=== PATIENT | male | born 1970 | race Caucasian/White ===

== ENCOUNTER 2024-07-25 00:28 | Observation (INO) | payer MEDICAID, SELFPAY ==
[2024-07-25 00:46] VITALS: BP 128/76; PULSE 89; RESP 18; TEMP 36.9; O2SAT 94; BMI 27.3
--- NOTE | 2024-07-25 00:54 | XR_ITS ---
PROCEDURE INFORMATION: Exam: XR Chest Exam date and time: 07/25/2024 12:57 AM Age: 53 years old Clinical indication: Shortness of breath TECHNIQUE: Imaging protocol: Radiologic exam of the chest. Views: 1 view. COMPARISON: CR XR CHEST PORTABLE 07/25/2024 12:57 AM FINDINGS: Tubes, catheters and devices: A right IJ vein [id number] is noted. Lungs: There are emphysematous changes present. No consolidation Pleural spaces: Blunting of the costophrenic angles may represent small effusions or pleural thickening. Heart/Mediastinum: Unremarkable. No cardiomegaly. Vasculature: Unremarkable. Bones/joints: Unremarkable. IMPRESSION: 1. Emphysematous changes. 2. Very small effusions versus pleural thickening.
[2024-07-25 00:58] LABS: Coronavirus 19, PCR Not Detected (NotDetected); Influenza B, PCR Not Detected (NotDetected)
[2024-07-25 01:00] LABS: Basophils # 0.1 K/mm3 (0-0.2); Basophils % 0.8 % (0.1-2.0); Eosinophils # 0.2 K/mm3 (0.0-0.4); Eosinophils % 3.1 % (0.1-12.0); Hematocrit 46.5 % (42.0-52.0); Hemoglobin 15.7 g/dL (14.1-18.0); Lymphocytes # 1.3 K/mm3 (0.7-4.5); Lymphocytes % 19.3 % (10-50); Mean Corpuscular HGB Conc 33.8 g/dL (31.8-35.4); Mean Corpuscular Hemoglobin 29.6 pg (27.0-31.2); Mean Corpuscular Volume 87.7 fl (80-94); Mean Platelet Volume 10.8 fl (7.4-10.4); Monocytes # 1.1 K/mm3 (0.1-1.0); Monocytes % 17.6 % (1.7-9.3); Neutrophils # 3.8 K/mm3 (1.8-7.8); Neutrophils % 58.9 % (37.0-80.0); Platelet Count 181 K/mm3 (142-424); Red Cell Distribution Width 14.7 % (11.5-17.5); White Blood Count 6.5 K/mm3 (4.8-10.8)
[2024-07-25 01:02] LABS: VBG Base Excess -4.3 mmol/L (-2.4-2.3); VBG HCO3 21.4 mmol/L (23-30); VBG Oxygen Saturation 98.6 % (50-70); VBG PCO2 40.3 mmol/L (35-51); VBG PH 7.34 mmol/L (7.31-7.41); VBG Total CO2 22.6 mmol/L (23-27)
[2024-07-25 01:03] LABS: Lactate Venous 3.8 mmol/L (0.4-2.0)
[2024-07-25 01:05] LABS: Alanine Aminotransferase 24 U/L (12-78); Albumin Level 4.5 g/dl (3.5-5.0); Albumin/Globulin Ratio 2.1 (1.1-1.8); Alkaline Phosphatase 87 U/L (38-126); Anion Gap 15.2 mEq/L (5-15); Aspartate Amino Transferase 34 U/L (17-59); Bilirubin,Total 0.6 mg/dl (0.2-1.3); Blood Urea Nitrogen 31 mg/dl (9-20); Calcium 8.4 mg/dl (8.4-10.2); Carbon Dioxide 25 mmol/L (22.0-30.0); Chloride 99 mmol/L (98-107); Creatinine Clearance Estimated 82 mL/min (50-200); Estimated Glomerular Filt Rate 63 ml/min (>60); GFR (African American) 77 ML/MIN (>60); Globulin 2.1 g/dL (1.3-3.2); Glucose 87 mg/dl (74-100); Potassium 4.2 mmoL/L (3.5-5.1); Sodium 135 mmol/L (136-145); Total Protein,Serum 6.6 g/dl (6.3-8.2)
--- NOTE | 2024-07-25 01:17 | CT_ITS ---
PROCEDURE INFORMATION: Exam: CT Abdomen And Pelvis With Contrast Exam date and time: 07/25/2024 1:50 AM Age: 53 years old Clinical indication: Abdominal pain; Additional info: Untreated lung cancer, worsening diffuse pain TECHNIQUE: Imaging protocol: Computed tomography of the abdomen and pelvis with contrast. 3D rendering (Not supervised by radiologist): MIP and/or 3D reconstructed images were created by the technologist. Radiation optimization: All CT scans at this facility use at least one of these dose optimization techniques: automated exposure control; mA and/or kV adjustment per patient size (includes targeted exams where dose is matched to clinical indication); or iterative reconstruction. Contrast material: ISOVUE; Contrast volume: 80 ml; Contrast route: IV; COMPARISON: CT ANGIO CHEST PE PROTOCOL 07/25/2024 1:50 AM FINDINGS: Lungs: The chest is reported separately. Liver: Normal. No mass. Gallbladder and biliary ducts: Normal. No calcified stones. No ductal dilation. Pancreas: Normal. No ductal dilation. Spleen: Normal. No splenomegaly. Adrenal glands: Normal. No mass. Kidneys and ureters: No hydronephrosis. No stone disease. 16 mm parapelvic cyst lower pole right kidney. Stomach and bowel: There are left colon diverticula without acute inflammation. No bowel obstruction. No mucosal thickening. Appendix: Absent. Intraperitoneal space: Unremarkable. No free air. No significant fluid collection. Vasculature: Mild to moderate calcific atherosclerotic disease without aneurysm or dissection. Lymph nodes: Unremarkable. No enlarged lymph nodes. Urinary bladder: Unremarkable as visualized. Reproductive: Unremarkable as visualized. Bones/joints: Mild degenerative changes of the spine. No acute fracture. Soft tissues: Unremarkable. IMPRESSION: 1. There is no acute process evident within the abdomen or pelvis. 2. Nonurgent findings as noted. COMMENTS: Consistent with the [employer]'s Incidental Findings Committee white paper (J Am Dennis Radiol 2018): Any incidental renal lesion less than 1 cm or classified as too small to characterize, or any incidental cystic renal lesion characterized as simple-appearing, is likely benign. No follow-up imaging is recommended for these lesions per consensus recommendations based on imaging criteria.
--- NOTE | 2024-07-25 01:17 | CT_ITS ---
PROCEDURE INFORMATION: Exam: CTA Chest With Contrast Exam date and time: 07/25/2024 1:50 AM Age: 53 years old Clinical indication: Shortness of breath; Additional info: Untreated lung cancer, worsening diffuse pain TECHNIQUE: Imaging protocol: Computed tomographic angiography of the chest with contrast. Exam focused on the arteries. 3D rendering (Not supervised by radiologist): MIP and/or 3D reconstructed images were created by the technologist. Radiation optimization: All CT scans at this facility use at least one of these dose optimization techniques: automated exposure control; mA and/or kV adjustment per patient size (includes targeted exams where dose is matched to clinical indication); or iterative reconstruction. Contrast material: ISOVUE; Contrast volume: 80 ml; Contrast route: INTRAVENOUS (IV); COMPARISON: CR XR CHEST PORTABLE 07/25/2024 12:57 AM FINDINGS: Tubes, catheters and devices: A right IJ vein [id number] is noted with the catheter tip positioned in the central superior vena cava. Pulmonary arteries: Normal. No pulmonary emboli. Aorta: Unremarkable. No aortic aneurysm. No aortic dissection. Lungs: Prominent calcified granuloma within the right upper lobe. Significant emphysematous changes. There are several areas of scarring noted within the right lung. A discrete mass is not identified within either lung. Pleural spaces: Unremarkable. No pneumothorax. No pleural effusion. Heart: Unremarkable. No cardiomegaly. No pericardial effusion. Lymph nodes: There are calcified right hilar and mediastinal lymph nodes. There are few mildly prominent mediastinal and right hilar lymph nodes without pathologic enlargement. Bones/joints: The thoracic spine is reported separately. No fracture, lytic or blastic abnormality of the ribcage, sternum or shoulder girdles. Soft tissues: Unremarkable. IMPRESSION: 1. No acute findings. No pulmonary embolus or acute aortic abnormality. 2. Severe emphysematous changes. No discrete pulmonary mass. There are areas of apparent scarring within the right lung. Correlation with prior imaging which demonstrates the patient's lung cancer is recommended. 3. Other nonemergent findings as noted. COMMENTS: The presence of pulmonary emphysema on CT is an independent risk factor for lung cancer. In the absence of a history or active diagnosis of lung cancer, it is recommended that this patient with emphysema be evaluated for enrollment in a low dose CT lung cancer screening program.
--- NOTE | 2024-07-25 01:18 | CT_ITS ---
PROCEDURE INFORMATION: Exam: CTA Head With Contrast, Arteriography Exam date and time: 07/25/2024 1:45 AM Age: 53 years old Clinical indication: Pain; Headache; Additional info: 3 days R facial/rue/rle numbness, known lung CA TECHNIQUE: Imaging protocol: Computed tomographic angiography of the head with contrast. Exam focused on the arteries. 3D rendering (Not supervised by radiologist): MIP and/or 3D reconstructed images were created by the technologist. Radiation optimization: All CT scans at this facility use at least one of these dose optimization techniques: automated exposure control; mA and/or kV adjustment per patient size (includes targeted exams where dose is matched to clinical indication); or iterative reconstruction. Contrast material: ISOVUE; Contrast volume: 80 ml; Contrast route: INTRAVENOUS (IV); COMPARISON: CT HEAD/BRAIN WO CON 07/25/2024 1:37 AM FINDINGS: ANTERIOR CIRCULATION: Right internal carotid artery: Intracranial segment is patent with no significant stenosis. No aneurysm. Right middle cerebral artery: No occlusion or significant stenosis. No aneurysm. Right anterior cerebral artery: No occlusion or significant stenosis. No aneurysm. Left internal carotid artery: Intracranial segment is patent with no significant stenosis. No aneurysm. Left middle cerebral artery: No occlusion or significant stenosis. No aneurysm. Left anterior cerebral artery: No occlusion or significant stenosis. No aneurysm. POSTERIOR CIRCULATION: Right vertebral artery: No occlusion or significant stenosis. No aneurysm. Left vertebral artery: No occlusion or significant stenosis. No aneurysm. Basilar artery: No occlusion or significant stenosis. No aneurysm. Right posterior cerebral artery: No occlusion or significant stenosis. No aneurysm. Left posterior cerebral artery: No occlusion or significant stenosis. No aneurysm. Brain: No hemorrhage. Unremarkable white matter. No mass effect. Cerebral ventricles: No ventriculomegaly. Bones/joints: Unremarkable. No acute fracture. Soft tissues: Unremarkable. IMPRESSION: Negative CTA Head. No evidence of intracranial large vessel stenosis or occlusion. No evidence of aneurysm or AVM.
--- NOTE | 2024-07-25 01:18 | CT_ITS ---
PROCEDURE INFORMATION: Exam: CT Head Without Contrast Exam date and time: 07/25/2024 1:37 AM Age: 53 years old Clinical indication: Pain; Headache not specified; Additional info: 3 days R facial/rue/rle numbness, known lung CA TECHNIQUE: Imaging protocol: Computed tomography of the head without contrast. Total images: 542 Radiation optimization: All CT scans at this facility use at least one of these dose optimization techniques: automated exposure control; mA and/or kV adjustment per patient size (includes targeted exams where dose is matched to clinical indication); or iterative reconstruction. COMPARISON: No relevant prior studies available. FINDINGS: Brain: No acute intracranial hemorrhage, midline shift, or mass. No acute territorial infarct. Basilar cisterns are preserved. Age-appropriate white matter. Cerebral ventricles: Mild ventricular prominence likely reflecting central atrophy. Paranasal sinuses: Mild mucosal thickening of the ethmoid air cells, bilateral maxillary and sphenoid sinuses. Trace air-fluid level right sphenoid sinus implying acute sinusitis. Mastoid air cells: Visualized mastoid air cells are well aerated. Bones: Unremarkable. No acute fracture. Soft tissues: Unremarkable. Other findings: Limited by motion/attenuation artifact. IMPRESSION: 1. No acute intracranial process. 2. Limited by motion and attenuation artifact. 3. Paranasal sinus disease including shallow air-fluid level in the right maxillary sinus implying acute sinusitis. 4. If symptoms persist or worsen, recommend follow-up imaging given current limitations.
--- NOTE | 2024-07-25 01:18 | CT_ITS ---
PROCEDURE INFORMATION: Exam: CT Lumbar Spine Without Contrast Exam date and time: 07/25/2024 1:43 AM Age: 53 years old Clinical indication: Low back pain; Additional info: Untreated lung cancer, worsening diffuse pain TECHNIQUE: Imaging protocol: Computed tomography of the lumbar spine without contrast. Radiation optimization: All CT scans at this facility use at least one of these dose optimization techniques: automated exposure control; mA and/or kV adjustment per patient size (includes targeted exams where dose is matched to clinical indication); or iterative reconstruction. COMPARISON: CT THORACIC SPINE WO CON 07/25/2024 1:40 AM FINDINGS: Bones/joints: No acute fracture. No lytic or blastic process. Normal alignment. Diffuse mild degenerative disc disease most prominent at L3-L4. Diffuse [id number] facet arthropathy. No significant disc bulge or herniation. No severe spinal canal stenosis. No significant neural foraminal narrowing. Intraperitoneal space: The abdomen and pelvis reported separately. Soft tissues: Unremarkable. IMPRESSION: No acute abnormality of the lumbar spine.
--- NOTE | 2024-07-25 01:18 | CT_ITS ---
PROCEDURE INFORMATION: Exam: CT Thoracic Spine Without Contrast Exam date and time: 07/25/2024 1:40 AM Age: 53 years old Clinical indication: Pain in thoracic spine; Additional info: Untreated lung cancer, worsening diffuse pain TECHNIQUE: Imaging protocol: Computed tomography of the thoracic spine without contrast. Radiation optimization: All CT scans at this facility use at least one of these dose optimization techniques: automated exposure control; mA and/or kV adjustment per patient size (includes targeted exams where dose is matched to clinical indication); or iterative reconstruction. COMPARISON: CR XR CHEST PORTABLE 07/25/2024 12:57 AM FINDINGS: Bones/joints: Severe degenerative disc disease noted at C5-C6 and C6-C7. Mild degenerative changes of the thoracic spine most prominent involving the mid and lower aspect. No fracture, lytic or blastic abnormality. Spinal cord: The central canal and foramina are widely patent. Soft tissues: Unremarkable. Other findings: The chest is reported separately. IMPRESSION: No acute abnormality of the thoracic spine.
--- NOTE | 2024-07-25 01:19 | CT_ITS ---
PROCEDURE INFORMATION: Exam: CTA Neck With Contrast Exam date and time: 07/25/2024 1:45 AM Age: 53 years old Clinical indication: Pain; Headache; Additional info: 3 days R facial/rue/rle numbness, known lung CA TECHNIQUE: Imaging protocol: Computed tomographic angiography of the neck with contrast. Exam focused on the cervical segments of the vasculature. 3D rendering (Not supervised by radiologist): MIP and/or 3D reconstructed images were created by the technologist. Radiation optimization: All CT scans at this facility use at least one of these dose optimization techniques: automated exposure control; mA and/or kV adjustment per patient size (includes targeted exams where dose is matched to clinical indication); or iterative reconstruction. Contrast material: ISOVUE; Contrast volume: 80 ml; Contrast route: INTRAVENOUS (IV); COMPARISON: CT ANGIO HEAD 07/25/2024 1:45 AM FINDINGS: Right common carotid artery: Unremarkable. No significant stenosis. No dissection or occlusion. Right internal carotid artery: There is calcified mural plaque at the carotid bifurcation, but no significant stenosis. The remaining extracranial segment is patent with no significant stenosis. No dissection or occlusion. Right external carotid artery: No occlusion or stenosis of the origin. Left common carotid artery: Unremarkable. No significant stenosis. No dissection or occlusion. Left internal carotid artery: There is calcified mural plaque at the carotid bifurcation, but no significant stenosis. The remaining extracranial segment is patent with no significant stenosis. No dissection or occlusion. Left external carotid artery: No occlusion or stenosis of the origin. Right vertebral artery: No stenosis. No dissection or occlusion. Left vertebral artery: No stenosis. No dissection or occlusion. Soft tissues: Normal. No significant soft tissue swelling. Bones/joints: No acute fracture. IMPRESSION: 1. Calcific atherosclerotic changes at the bilateral carotid bifurcations, but no significant stenosis or occlusion. 2. No evidence of stenosis or occlusion of the remaining cervical great vessels. No evidence of dissection. REFERENCES: NASCET CRITERIA. The degree of stenosis in the cervical segment of the internal carotid artery is based on NASCET criteria. Normal is no stenosis. Mild is less than 50% stenosis. Moderate is 50-69% stenosis. Severe is 70% to 99% stenosis. Total occlusion is no detectable patent lumen.
[2024-07-25 01:20] LABS: Influenza A, PCR Detected (NotDetected)
--- NOTE | 2024-07-25 01:21 | ECG_ITS ---
APPROVED REPORT Exam: Resting ECG HR:81 bpm ECG Measurements Heart Rate 81 AXES TN 143 P 72 QRSd 94 QRS 83 QT 346 T 45 QTc 384 Conclusion SINUS RHYTHM NORMAL ECG UNCONFIRMED REPORT Electronically signed by : BHARATI SPIVEY, 07/25/2024 06:58:31
[2024-07-25] MEDS: IPRATROPIUM/ALBUTEROL 3 ML NEB 6 ML IH (01:25)
[2024-07-25 01:35] LABS: INR 1.06 (0.9-1.1); Magnesium 2.2 mg/dl (1.6-2.3); Phosphorous 3.4 mg/dl (2.5-4.5); Prothrombin Time 11.5 seconds (9.2-12.1)
--- NOTE | 2024-07-25 01:37 | HMH.EDGENADL ---
Discharge Plan Disposition Patient Disposition: Admitted Clinical Impressions Clinical Impression: Numbness on right side, Influenza B Discharge ED Provider: Danyel Santiago Adult HPI General Chief complaint: Shortness of Breath/Dyspnea Stated complaint: SOA, weakness, body aches Time Seen by Provider: 07/25/24 00:35 Mode of Arrival: Ambulatory Source of Information: Patient Limitations: No Limitations Description of Symptoms (Recalled from ER Triage Doc. by RN): patient complains of cough, weakness, shortness of breath, pain in back. States pain is 9/10 in his back. History of Present Illness HPI narrative: 53-year-old male with reported history of of treated B cell lymphoma and reported recurrence of cancer in his lungs presents for multiple complaints. He reports he is having headache, severe back pain, rib pain, pain with breathing, shortness of breath, intermittent fevers, etc. etc. He also reports that about 3 days ago he started having difficulty using his right hand with associated numbness in his right face, right upper extremity and right lower extremity. Denies significant weakness. He reports that he has been drooling of the right side of his mouth and he cannot figure out why. He reports that he was seen at another facility a few months ago and was told that he likely has new cancer in bilateral lungs. He is very upset about this diagnosis. He has not seen his new cancer doctor yet because his old cancer doctor retired. He has an appointment scheduled for next month. He reports that he is on oxygen at home at baseline. Related Data Allergies Allergy/AdvReac Type Severity Reaction Status Date / Time Penicillins Allergy Anaphylaxis Verified 07/25/24 03:46 [facility] Disclaimer: The information contained in this section may have been updated after the patient was seen, as this information can be updated by other users. Medical History (Updated 07/25/24 @ 04:48 by Ethel Nguyễn RN) Depression Pneumonia Stomach cancer Lung cancer COPD (chronic obstructive pulmonary disease) Asthma Weakness Family History (Updated 07/25/24 @ 04:48 by Ethel Nguyễn RN) Family/Other Cancer Social History (Updated 07/25/24 @ 04:48 by Ethel Nguyễn RN) Smoking Status: Former smoker alcohol intake: never current occupational status: other Travel in the last 8 weeks: None Have you lived/traveled outside US in past 30 days?: No Contact w/someone who lives/traveled outside US past 30 days?: No Exposure to someone with infectious disease in past 14 days?: No Do you have a fever (greater than 100.4 F or 38 C)?: No Have you tested positive for COVID-19: No Exposed to someone with COVID-19 in past 14 days?: No Do you have a sore throat?: No Do you have a cough?: No Do you have any weakness?: Yes Do you have any diarrhea?: No Are you experiencing any unusual bleeding?: No Do you have any muscle aches/pain?: Yes Do you have any abdominal pain?: No Are you experiencing loss of taste or smell?: No ROS Obtained: Yes All systems reviewed & no additional complaints except as documented Physical Exam General General appearance: alert and anxious Head Head exam: atraumatic and normocephalic Eye Eye exam: Present normal appearance, PERRL and EOMI ENT ENT exam: Present normal oropharynx and normal external ear exam Neck Neck exam: Present normal inspection and full ROM Chest Chest inspection: Present normal inspection and symmetric chest wall rise; Absent tenderness Respiratory Respiratory exam: Absent normal lung sounds bilaterally (Mild wheeze and rhonchi bilaterally, worse on the left) or respiratory distress Cardiovascular Cardiovascular exam: Present regular rate and normal rhythm Abdominal Exam Abdominal exam: Present soft; Absent distention, tenderness or guarding Extremities Exam Extremities exam: Present normal inspection; Absent edema or joint swelling Back Exam Back exam: Present normal inspection; Absent tenderness Neurological Exam Neurological exam: Present alert, oriented X3 and motor sensory deficit (Numbness in the right upper extremity, right lower extremity, right side of the face. No appreciable motor difference.) Psychiatric Psychiatric exam: Present normal affect and normal mood Skin Skin exam: Present warm, dry and normal color Lymphatic Lymphatic Findings: no adenopathy Medical Decision Making Medical Records Medical records reviewed: Yes I reviewed the patient's medical records. Screening: Per USPSTF and CDC recommendations, given the prevalence of disease in our region, it is our hospital?s policy to screen for HIV and viral Hepatitis for all patients aged 18 and over and those with ongoing risk factors. Ted Inquiry Pt receiving controlled substance: No Ted was queried for this patient: No Vital Signs: 07/25/24 00:46 07/25/24 03:47 Temperature 98.4 F 98.4 F Temperature Source Oral Oral Pulse Rate 77 Pulse Rate [Right Radial] 89 Respiratory Rate 18 18 Blood Pressure 90/56 L Blood Pressure [Right Arm] 128/76 Blood Pressure Mean [Right Arm] 93 Blood Pressure Source Automatic Cuff Blood Pressure Source [Right Arm] Automatic Cuff Blood Pressure Position Supine Blood Pressure Position [Right Arm] Supine 02 Sat by Pulse Oximetry 94 L Oxygen Delivery Method Room Air Room Air Lab Data Lab results reviewed: Yes I reviewed the patient's lab results. Lab Results 07/25/24 00:43: WBC 6.5, RBC 5.30, Hgb 15.7, Hct 46.5, MCV 87.7, MCH 29.6, MCHC 33.8, RDW 14.7, Plt Count 181, MPV 10.8 H, Neut % (Auto) 58.9, Lymph % (Auto) 19.3, [place] % (Auto) 17.6 H, Eos % (Auto) 3.1, Baso % (Auto) 0.8, Neut # (Auto) 3.8, Lymph # (Auto) 1.3, [place] # (Auto) 1.1 H, Eos # (Auto) 0.2, Baso # (Auto) 0.1, PT 11.5, INR 1.06, Sodium 135 L, Potassium 4.2, Chloride 99, Carbon Dioxide 25, Anion Gap 15.2 H, BUN 31 H, Creatinine 1.20, Estimated Creat Clear 82, Estimated GFR 63, Est GFR ( Amer) 77, Glucose 87, Calcium 8.4, Phosphorus 3.4, Magnesium 2.2, Total Bilirubin 0.6, AST 34, ALT 24, Alkaline Phosphatase 87, Troponin I < 0.01, NT-Pro-B Natriuret Pep 20.6, Total Protein 6.6, Albumin 4.5, Globulin 2.1, Albumin/Globulin Ratio 2.1 H, SARS-CoV-2 (PCR) Not detected, Influenza A Untype (PCR) Detected A, Influenza Type B (PCR) Not detected 07/25/24 01:02: VBG pH 7.34, VBG pCO2 40.3, VBG pO2 185.0 H, VBG HCO3 21.4 L, VBG Total CO2 22.6 L, VBG O2 Saturation 98.6 H, VBG Base Excess -4.3 L, VBG Lactic Acid 3.8 H 07/25/24 02:27: Urine Color Dark yellow, Urine Appearance Clear, Urine pH 5.0, Ur Specific [place] 1.015, Urine Protein Negative, Urine Glucose (UA) 2+, Urine Ketones Trace, Urine Blood Negative, Urine Nitrate Negative, Urine Bilirubin Negative, Urine Urobilinogen 0.2, Ur Leukocyte Esterase Negative, Urine RBC None, Urine WBC Occasional, Ur Squamous Epith Cells Occasional, Urine Bacteria Trace, Urine Mucus Trace 07/25/24 00:43 07/25/24 00:43 Orders (Tests/Meds): ED MEDICATIONS Generic Name Dose Route Start Last Admin Trade Name Freq PRN Reason Stop Dose Admin Acetaminophen 650 mg 07/25/24 03:38 Acetaminophen 325mg Tab PO 08/24/24 03:37 Q4HP PRN Fever or Mild Pain (1-3) Hydrocodone Bitart/Acetaminophen 1 tab 07/25/24 03:38 Hydrocodone/Apap 5/325 Mg Tablet PO 08/24/24 03:37 Q4HP PRN Mild to Moderate Pain (1-6) Enoxaparin Sodium 40 mg 07/25/24 09:00 Enoxaparin 40mg/0.4ml Syringe SUBCUT 08/24/24 08:59 DAILY [facility] Insulin Human Lispro 0 unit 07/25/24 06:00 Humalog 100 Units/Ml 10ml Vial (Ssi) SUBCUT 08/24/24 05:59 ACHS [facility] Protocol Morphine Sulfate 2 mg 07/25/24 03:38 Morphine 2mg/Ml Syringe IV 08/24/24 03:37 Q4HP PRN Severe Pain (7-10) Ondansetron HCl 4 mg 07/25/24 03:38 Ondansetron 4mg/2ml Vial IV 08/24/24 03:37 Q8HP PRN Nausea Oseltamivir Phosphate 75 mg 07/25/24 21:00 Oseltamivir 75mg Capsule PO 07/30/24 09:01 BID ANA Sodium Chloride 10 ml 07/25/24 01:53 07/25/24 01:53 Sodium Chloride 0.9% 10ml Syr (Rad Only) IV 08/24/24 01:52 10 ml NEEDED PRN Administration Maintain IV Site Discontinued Medications Generic Name Dose Route Start Last Admin Trade Name Freq PRN Reason Stop Dose Admin Acetaminophen 1,000 mg 07/25/24 01:17 07/25/24 02:06 Acetaminophen 500mg Tab PO 07/25/24 01:18 1,000 mg ONCE ONE Administration Albuterol/Ipratropium 6 ml 07/25/24 01:17 07/25/24 01:25 Ipratropium/Albuterol 3 Ml Neb IH 07/25/24 01:18 6 ml ONCE ONE Administration Iopamidol 160 ml 07/25/24 01:53 07/25/24 01:54 Iopamidol-370 (76%);100ml Bottle IV 07/25/24 01:54 160 ml ONCE ONE Administration Ketorolac Tromethamine 15 mg 07/25/24 01:17 07/25/24 02:06 Ketorolac 30mg/Ml Vial IV 07/25/24 01:18 15 mg ONCE ONE Administration Morphine Sulfate 4 mg 07/25/24 01:17 07/25/24 02:06 Morphine 4mg/Ml Syringe IV 07/25/24 01:18 4 mg ONCE ONE Administration Oseltamivir Phosphate 75 mg 07/25/24 03:11 07/25/24 03:18 Oseltamivir 75mg Capsule PO 07/25/24 03:12 75 mg ONCE ONE Administration Sodium Chloride 50 ml 07/25/24 01:53 07/25/24 01:53 0.9 % Sodium Chloride 50 Ml Vial IV 07/25/24 01:54 50 ml ONCE ONE Administration ORDERS Category Date Time Status CT abdomen pelvis w con Stat Cat Scan 07/25/24 01:[address] angio chest PE protocol Stat Cat Scan 07/25/24 01:[address] angio head Stat Cat Scan 07/25/24 01:[address] angio neck Stat Cat Scan 07/25/24 01:[address] head/brain wo con Stat Cat Scan 07/25/24 01:[address] lumbar spine wo con Stat Cat Scan 07/25/24 01:[address] thoracic spine wo con Stat Cat Scan 07/25/24 01:18 Completed CXR --portable [XR chest portable] Stat Exams 07/25/24 00:54 Completed BNP [NT Pro Brain Natriuretic Pep.] Stat Lab 07/25/24 00:43 Completed Complete Blood Count Auto Diff Stat Lab 07/25/24 00:43 Completed Comprehensive Metabolic Panel Stat Lab 07/25/24 00:43 Completed INR [Prothrombin Time INR] Stat Lab 07/25/24 00:43 Completed MAG [Magnesium] Stat Lab 07/25/24 00:43 Completed PHOS [Phosphorous] Stat Lab 07/25/24 00:43 Completed Rapid PCR Covid and Flu A/B Stat Lab 07/25/24 00:43 Completed Trop I [Troponin I] Stat Lab 07/25/24 00:43 Completed Troponin I Q3H Lab 07/25/24 04:30 Ordered Troponin I Q3H Lab 07/25/24 07:30 Ordered UA [Urinalysis and Microscopic] Stat Lab 07/25/24 02:27 Completed Blood Culture Stat Micro 07/25/24 02:37 Received Venous Blood Gas Stat RT 07/25/24 01:02 Completed EKG Request [ECG Request] Stat Y 07/25/24 01:21 Ordered Medical Decision Narrative: 53-year-old male with history of recently completed therapy for B-cell lymphoma, recently told that he has new cancer in his lungs bilaterally by an outside facility, presents for days 2 weeks of weight loss, headaches, chest pain back pain shortness of breath cough congestion. History was obtained via interactive discussion with patient, chart review. On arrival, patient is [afebrile, hemodynamically stable, satting appropriately, alert, oriented x4, GCS 15], moving all extremities spontaneously. Full physical exam performed and significant for numbness to the right side of the body, no significant motor deficit, abnormal lung sounds bilaterally. Differential includes but is not limited to malignancy, metastasis, pneumonia, COVID flu, tension headache, migraine headache, PE, stroke, etc. patient was not stroke alerted as reported deficits began approximately 3 days ago. Patient was given Tylenol Toradol morphine DuoNeb x 2 for symptomatic management and correction of underlying abnormalities. Workup initiated including CT head CTA head neck to assess for possible stroke/intracranial pathology, CT PE, CT abdomen pelvis, CT spines, broad-spectrum laboratory evaluation On re-evaluation, patient [remains afebrile, HD stable.] Reports some improvement in his headache but reports his headache is persistent. Laboratory workup independently interpreted by me and significant for positive influenza. No significant leukocytosis, mildly elevated lactate, no significant electrolyte derangement, mildly elevated BUN Imaging independently interpreted by me and significant for no evidence of intracranial mass lesion, hemorrhagic or ischemic stroke on CT. No PE or pneumonia or rib fracture, no evidence of metastatic disease elsewhere.. See radiology read for full review of final results. EKG independently interpreted by me and significant for normal sinus rhythm, rate of 81, no concerning ischemic changes, interpreted by me at 0 217. Given patient history, exam and workup, patient's presentation most likely represents acute influenza infection, persistent headache, possible subacute stroke with right-sided sensory deficits. Interactive discussion was had with patient regarding his presentation. Interact discussion was had with hospice on-call for admission for MRI of the head for further stroke assessment as well as symptomatic care. Procedures Risk/Benefits of Procedure(s) Were Explained: Yes Critical Care Critical Care Time Critical Care Time: No
[2024-07-25 01:45] LABS: NT Pro Brain Natriuretic Pep. 20.6 pg/mL (0-125)
[2024-07-25 01:48] LABS: Troponin I < 0.01 ng/ml (0.00-0.034)
[2024-07-25] MEDS: SODIUM CHLORIDE 0.9% 10ML SYR (RAD ONLY) 10 ML IV (01:53)
[2024-07-25] MEDS: 0.9 % SODIUM CHLORIDE 50 ML VIAL IV (01:53)
[2024-07-25] MEDS: IOPAMIDOL-370 (76%);100ML BOTTLE 160 ML IV (01:54)
[2024-07-25] MEDS: KETOROLAC 30MG/ML VIAL 15 MG IV (02:06)
[2024-07-25] MEDS: ACETAMINOPHEN 500MG TAB 1000 MG PO (02:06)
[2024-07-25] MEDS: MORPHINE 4MG/ML SYRINGE 4 MG IV (02:06)
[2024-07-25 02:42] LABS: Microscopic, Urine URINE MICROSCOPIC (MICROSCOPIC)
[2024-07-25 02:45] LABS: Appearance,Urine CLEAR (Clear); Bilirubin,Urine Negative (Negative); Blood, Urine Negative (Negative); Glucose,Urine (UA) 2+ (Negative); Ketones,Urine TRACE (Negative); Leukocyte Esterase,Urine Negative (Negative); Nitrate,Urine Negative (Negative); Protein,Urine Negative (Negative); Specific Gravity, Urine 1.015 (1.005-1.030); Urobilinogen,Urine 0.2 EU/dl (0.2)
[2024-07-25 02:48] LABS: Color,Urine Dark Yellow (Yellow)
[2024-07-25 02:59] LABS: WBC,Urine Occasional #/hpf (0-3)
[2024-07-25 03:00] LABS: Bacteria,Urine Trace /lpf; Mucus,Urine Trace /lpf; Squamous Epithelial Cell,Urine Occasional #/hpf (0-5)
[2024-07-25] MEDS: OSELTAMIVIR 75MG CAPSULE 75 MG PO (03:18)
[2024-07-25 03:36] VITALS: PULSE 77; RESP 16; O2SAT 92
--- NOTE | 2024-07-25 03:44 | PC.NURSE ---
Gave report to KEILA Davenport at this time
[2024-07-25 03:47] VITALS: BP 90/56; PULSE 77; RESP 18; TEMP 36.9; O2SAT 93
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
--- NOTE | 2024-07-25 04:24 | PC.NURSE ---
Patient arrived to floor via wheelchair from ED at 04:04.
[2024-07-25 04:38] VITALS: BP 90/56; PULSE 74; RESP 16; TEMP 36.8; O2SAT 91; BMI 27.9
[2024-07-25 05:04] LABS: Reflex Lactic Add Lactic Reflex
--- NOTE | 2024-07-25 05:16 | PC.NURSE ---
Port to the right chest was accessed using sterile technique at this time by Ryanne Mancilla RN. (Chaya Nguyễn RN) and Leigh Calhoun RN assisted/observed the procedure at the bedside. Port access is patent and intact with smooth blood return.
[2024-07-25 05:31] LABS: Chol/HDL Ratio 8.1 (1-3.5); Cholesterol 129 mg/dl (140-200); HDL Cholesterol 16 mg/dl (40-60); Triglycerides 82 mg/dl (30-150); VLDL Cholesterol 16 mg/dL (0-40)
[2024-07-25 05:37] LABS: POC Glucose,Bedside 113 (70-110)
[2024-07-25 05:45] LABS: Troponin I < 0.01 ng/ml (0.00-0.034)
--- NOTE | 2024-07-25 05:52 | PC.NURSE ---
Mr Deepak Hays is a pleasant patient that was newly admitted this shift on behalf of the documented diagnoses: muscle weakness and stroke-like symptoms. He expressed having pain that radiated from the anterior/posterior planes of his thorax (upper/lower back, chest). Muscle weakness was present primarily on his right side only (from face to foot ). He also explained that he has a history of lung cancer, asthma, and COPD. During auscultation of his lungs, expiratory/inspiratory wheezing could be heard. Auscultation of his heart and bowel sounds were within normal findings. Abdomen is soft and non-tender with palpation. Patient's port to the right chest was accessed during this shift (see prior note). Blood pressures have been hypotensive; other vital signs stable. Oxygen saturations are currently > 90% on room air. Admission assessment and home medication reconciliation was completed this shift. Patient ambulates independently in room/to the bathroom without difficulties. A Pepsi soda was given to him this morning. At this time, the patient is resting supine in bed without any further complaints. No acute changes noted thus far. Call light within reach. Patient belongings in room. Droplet precautions in place per Influenza A (Untype).
[2024-07-25 06:32] LABS: Direct LDL Cholesterol 95.53 mg/dL (100-129)
[2024-07-25] MEDS: HYDROCODONE/APAP 5/325 MG TABLET 1 TAB PO (07:00)
[2024-07-25 07:12] LABS: Lactic Acid Follow Up (RFLX 1) 0.6 mmol/L (0.7-2.1)
[2024-07-25 07:44] LABS: Troponin I < 0.01 ng/ml (0.00-0.034)
[2024-07-25 08:00] VITALS: BP 120/54; PULSE 72; RESP 16; TEMP 36.6; O2SAT 95
[2024-07-25] MEDS: MORPHINE 2MG/ML SYRINGE 2 MG IV (08:07)
[2024-07-25] MEDS: ENOXAPARIN 40MG/0.4ML SYRINGE 40 MG SUBCUT (09:16)
--- NOTE | 2024-07-25 10:11 | HMH.PHAINT1 ---
Pharmacy Intervention Comments: MEDICATION RECONCILIATION COMPLETE USING EXTERNAL PHARMACY FILL HISTORY.
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
[2024-07-25] MEDS: IPRATROPIUM/ALBUTEROL 3 ML NEB IH (10:53)
[2024-07-25 10:54] VITALS: PULSE 64; PULSE 68; O2SAT 93
[2024-07-25] MEDS: ASPIRIN EC 81MG TABLET 81 MG PO (11:27)
[2024-07-25] MEDS: ATORVASTATIN 40MG TABLET 40 MG PO (11:27)
[2024-07-25] MEDS: CLOPIDOGREL 75MG TAB 75 MG PO (11:27)
[2024-07-25] MEDS: predniSONE 20MG TAB 40 MG PO (11:27)
[2024-07-25 11:31] LABS: POC Glucose,Bedside 108 (70-110)
--- NOTE | 2024-07-26 11:14 | SW/DCPLANNER ---
Spoke with patient on the phone. Patient stated that he is struggling today to breathe. Patient stated that he is spitting up this [place] green stuff. Patient stated that he is aware of his upcoming appointment. Patient stated that he just went and picked up his new medicine from the pharmacy. Patient stated that he has no concerns or questions at this time. Lashawn Roy
--- NOTE | 2024-07-26 11:15 | CARE MANAGER ---
MRI of brain approved. Contacted scheduling and they will call patient to schedule.
== END 2024-07-25 12:25 | disposition home or self-care (01) ==
LOC: ER 00:48 → 2ND 03:36
PROVIDERS: Nurse Practitioner Family; Admitting Provider Student in an Organized Health Care Education/Training Program; Emergency Provider Emergency Medicine; PCP Nurse Practitioner; Visit Provider Student in an Organized Health Care Education/Training Program
DX: J44.1 Chronic obstructive pulmonary disease with (acute) exacerbation (principal); J10.1 Influenza due to other identified influenza virus with other respiratory manifestations; E11.9 Type 2 diabetes mellitus without complications; R63.4 Abnormal weight loss; G81.91 Hemiplegia, unspecified affecting right dominant side; Z68.27 Body mass index [BMI] 27.0-27.9, adult; Z87.891 Personal history of nicotine dependence; Z79.02 Long term (current) use of antithrombotics/antiplatelets; Z79.01 Long term (current) use of anticoagulants; Z79.51 Long term (current) use of inhaled steroids; Z79.84 Long term (current) use of oral hypoglycemic drugs; Z99.81 Dependence on supplemental oxygen; Z85.028 Personal history of other malignant neoplasm of stomach; Z85.79 Personal history of other malignant neoplasms of lymphoid, hematopoietic and related tissues
CPT/HCPCS: 70450; 70496; 70498; 71045; 71275; 72128; 72131; 74177; 80053; 80061; 81001; 82803; 82962; 83605; 83735; 83880; 84100; 84484; 85025; 85610; 87040; 87636; 93005; 94640; 99285; G0378; J1642; J1650; J1885; J2270; J7620; Q9967

== ENCOUNTER 2024-07-26 14:02 | Outpatient (CLI) | payer MEDICAID, SELFPAY ==
--- NOTE | 2024-07-26 14:03 | MR_ITS ---
FINAL REPORT CLINICAL HISTORY: Right-sided weakness, history of B-cell lymphoma COMPARISON: None FINDINGS: Multi planar MR imaging was obtained through the brain without contrast. The midline structures appear intact. There is no evidence of Chiari malformation. On T2 and flair axial images the brain parenchyma is homogeneous. On diffusion-weighted images there is no evidence of restricted diffusion. The visualized paranasal sinuses demonstrate mild mucoperiosteal thickening of the maxillary sinuses. The seventh and eighth nerve root complexes are intact. IMPRESSION: Essentially unremarkable nonenhanced brain MRI. Chronic sinusitis in the maxillary sinuses bilaterally. Reviewed, Interpreted and Dictated by Stephen Mathis MD Transcribed by Nicky Laurent Authenticated and [facility]
== END 2024-07-26 23:59 | disposition home or self-care (01) ==
LOC: RAD 14:03
PROVIDERS: PCP Nurse Practitioner; Visit Provider Student in an Organized Health Care Education/Training Program
DX: R53.1 Weakness (principal); Z85.72 Personal history of non-Hodgkin lymphomas
CPT/HCPCS: 70551